=== PATIENT | female | born 1980 | race Two or more races ===

== ENCOUNTER 2017-05-08 11:09 | Emergency (ER) | payer MEDICAID ==
[~2017-05-08] VITALS: Ht 157.5 cm; Wt 66.2 kg
[2017-05-08 11:14] VITALS: BP 114/70
== END 2017-05-08 12:02 | disposition home or self-care (01) ==
LOC: ER 11:12
DX: J11.1 Influenza due to unidentified influenza virus with other respiratory manifestations (principal)
CPT/HCPCS: A4606; Z7610

== ENCOUNTER 2018-04-21 10:18 | Emergency (ER) | END 2018-04-21 11:01 | disposition home or self-care (01) | DX: J20.9 Acute bronchitis, unspecified (principal) ==

== ENCOUNTER 2019-07-29 16:55 | Emergency (ER) | payer MEDICAID ==
[~2019-07-29] VITALS: Ht 157.5 cm; Wt 64.4 kg
[2019-07-29 17:00] VITALS: BP 133/66
== END 2019-07-29 20:27 | disposition home or self-care (01) ==
LOC: ER 16:56
DX: B34.9 Viral infection, unspecified (principal)
CPT/HCPCS: 71045-TC

== ENCOUNTER 2019-09-18 21:36 | Emergency (ER) | payer MEDICAID ==
[~2019-09-18] VITALS: Ht 157.5 cm; Wt 63.5 kg
--- NOTE | 2019-09-18 21:50 | NUR ---
BIBSELF C/O R UPPER EXT PAIN S/P MECHANICAL FALL X2 DAYS AGO. -KO,-HEAD INJ TO ER BED 3, AWAITING EVAL
[2019-09-18] MEDS ORDERED: TRAMADOL HCL 50 MG TABLET ONE (22:28)
[2019-09-18] MEDS ORDERED: TRAMADOL HCL 50 MG TABLET PO ONE (22:30)
[2019-09-18 23:20] VITALS: BP 127/83
--- NOTE | 2019-09-18 23:20 | NUR ---
Patient discharged to home in stable condition. Written and verbal after care instructions given. Patient verbalizes understanding of instruction.
== END 2019-09-18 23:20 | disposition home or self-care (01) ==
LOC: ER 21:36
DX: M79.621 Pain in right upper arm (principal); M25.511 Pain in right shoulder; W01.0XXA Fall on same level from slipping, tripping and stumbling without subsequent striking against object, initial encounter; Y93.01 Activity, walking, marching and hiking; Y92.89 Other specified places as the place of occurrence of the external cause; Y99.8 Other external cause status
CPT/HCPCS: 73030-TC; 73060-TC

== ENCOUNTER 2020-07-10 19:17 | Emergency (ER) | payer MEDICAID ==
[~2020-07-10] VITALS: Ht 157.5 cm; Wt 67.6 kg
--- NOTE | 2020-07-10 19:30 | NUR ---
PT BIBSELF C/O HEADACHE AND DIZZINESS [id number]. PT AAOX4 BREATHING EVENLY AND UNLABORED. PT STATES "I WENT TO THE EYE DR AND WAS TOLD THAT ONE PUPIL IS BIGGER THAN THE OTHER". UPON ASSESSMENT, PT RT PUPIL IS BLOWN AND UNREACTIVE TO LIGHT. LEFT PUPIL IS REACTIVE TO LIGHT. MD AT BEDSIDE FOR EVAL. BLOOD OBTAINED AND SENT TO LAB. 18G LEFT AC INITIATED. PT SKIN IS WARM, DRY, AND INTACT. PT ATTACHED TO MONITOR AND POX. BLANKET GIVEN AND CALL LIGHT WITHIN REACH. WILL CONTINUE TO MONITOR.
[2020-07-10 19:54] LABS: BASOPHILS % (AUTO) 0.4 % (0.0-2.0); EOSINOPHILS % (AUTO) 4.1 % (0.0-6.0); HEMATOCRIT 40 % (33-45); HEMOGLOBIN 13.5 g/dL (11.5-14.8); LYMPHOCYTES # (AUTO) 2.7 /CMM (0.8-4.8); LYMPHOCYTES % (AUTO) 30.5 % (20.0-44.0); MEAN CORPUSCULAR HGB CONC 34 g/dl (31.0-36.0); MEAN CORPUSCULAR VOLUME 93 fL (82-100); MONOCYTES # (AUTO) 0.7 /CMM (0.1-1.30); MONOCYTES % (AUTO) 7.6 % (2.0-12.0); NEUTROPHILS % (AUTO) 57.4 % (43.0-81.0); PLATELET COUNT (AUTO) 254 /CMM (150-450); RED BLOOD CELL COUNT(AUTO) 4.28 MIL/uL (4.0-5.2); WHITE BLOOD COUNT (AUTO) 8.7 K/uL (4.3-11.0)
[2020-07-10 20:08] LABS: ALBUMIN 3.7 g/dL (3.4-5.0); BILIRUBIN,TOTAL 0.4 mg/dL (0.2-1.0); CALCIUM, SERUM 9.2 mg/dL (8.5-10.1); CREATININE 0.9 mg/dL (0.6-1.3); POTASSIUM 3.8 mmol/L (3.5-5.1); TOTAL PROTEIN, SERUM 7.4 g/dL (6.4-8.2)
--- NOTE | 2020-07-10 20:18 | NUR ---
RADIOLOGY AT BEDSIDE
[2020-07-10] MEDS ORDERED: CT SWABBABLE VALVE TRANS SET 1 EA INFUS.SET MC ONE (20:19)
[2020-07-10] MEDS ORDERED: IV NS 0.9% 250 ML IV ONE (20:20)
[2020-07-10] MEDS ORDERED: IOHEXOL-350 100 ML VIAL IV ONE (20:20)
[2020-07-10 20:25] LABS: BILIRUBIN,DIRECT 0.1 mg/dL (0.0-0.2)
[2020-07-10] MEDS ORDERED: METOCLOPRAMIDE HCL 10 MG/2 ML VIAL IV ONE (20:30)
[2020-07-10] MEDS ORDERED: diphenhydrAMINE HCL 50 MG/ML VIAL IV ONE (20:30)
--- NOTE | 2020-07-10 20:35 | NUR ---
RETURNED FROM RADIOLOGY
[2020-07-10] MEDS ORDERED: METOCLOPRAMIDE HCL 10 MG/2 ML VIAL ONE (20:36)
[2020-07-10] MEDS ORDERED: diphenhydrAMINE HCL 50 MG/ML VIAL ONE (20:36)
--- NOTE | 2020-07-10 21:13 | NUR ---
Patient discharged to home in stable condition. Written and verbal after care instructions given. Patient verbalizes understanding of instruction. IV removed. Catheter intact and site benign. Pressure and 4x4 applied to site. No bleeding noted. Pt ambulatory with a steady gait
[2020-07-10 21:20] VITALS: BP 116/70
== END 2020-07-10 21:13 | disposition home or self-care (01) ==
LOC: ER 19:17
DX: R51.9 Headache, unspecified (principal); H57.02 Anisocoria
CPT/HCPCS: 36415; 70450; 70496; 70498; 80048; 80076; 85025; 96374; 96375; 99285; J1200; J2765; J7050; Q9967

== ENCOUNTER 2021-01-22 08:46 | Inpatient (IN) | payer MEDICAID ==
[~2021-01-22] VITALS: Ht 157.5 cm; Wt 68.6 kg
--- NOTE | 2021-01-22 08:59 | NUR ---
PT TO ER BED 06 C/O ON AND OFF COUGH X 1 WEEK. LAST NIGHT PT STATES HER SOB IS WORST WITH SOME CHEST DISCOMFORT SO DECIDED TO COME TO ED TODAY. DENIES CHEST PAIN. HURTS TO COUGH. AFEBRILE W/ STABLE VITALS. PATIENT HAS COVID VACCINE. AWAITING MD SANCHES.
--- NOTE | 2021-01-22 09:14 | NUR ---
DR FLORES AT BEDSIDE FOR EVAL.
[2021-01-22] MEDS ORDERED: methylPREDNISolone SOD SUCC 125 MG/2ML VIAL IV ONE (09:30)
[2021-01-22] MEDS ORDERED: ALBUTEROL FS 2.5 MG/3 ML VIAL.NEB CONTNEB ONE (09:30)
[2021-01-22] MEDS ORDERED: IPRATROPIUM NEB FS 0.5 MG/2.5 ML AMPUL.NEB NEB ONE (09:30)
[2021-01-22] MEDS ORDERED: methylPREDNISolone SOD SUCC 125 MG/2ML VIAL ONE (09:31)
--- NOTE | 2021-01-22 09:35 | NUR ---
IV LINE STARTED BLOOD DRAWN AND SENT TO LAB.
[2021-01-22] MEDS ORDERED: ALBUTEROL FS 2.5 MG/3 ML VIAL.NEB ONE (09:47)
[2021-01-22 09:53] LABS: BASOPHILS % (AUTO) 0.5 % (0.0-2.0); EOSINOPHILS % (AUTO) 8.2 % (0.0-6.0); HEMATOCRIT 38 % (33-45); HEMOGLOBIN 12.7 g/dL (11.5-14.8); LYMPHOCYTES # (AUTO) 2.6 K/uL (0.8-4.8); LYMPHOCYTES % (AUTO) 40.2 % (20.0-44.0); MEAN CORPUSCULAR HGB CONC 34 g/dl (31.0-36.0); MEAN CORPUSCULAR VOLUME 93 fL (82-100); MONOCYTES # (AUTO) 0.5 K/uL (0.1-1.30); MONOCYTES % (AUTO) 7.3 % (2.0-12.0); NEUTROPHILS # (AUTO) 2.8 K/uL (1.8-8.9); NEUTROPHILS % (AUTO) 43.8 % (43.0-81.0); PLATELET COUNT (AUTO) 253 K/uL (150-450); RED BLOOD CELL COUNT(AUTO) 4.08 MIL/uL (4.0-5.2); WHITE BLOOD COUNT (AUTO) 6.4 K/uL (4.3-11.0)
--- NOTE | 2021-01-22 09:55 | NUR ---
RT AT BEDSIDE FOR BREATHING TREATMENT.
[2021-01-22 10:03] LABS: CALCIUM, SERUM 8.8 mg/dL (8.5-10.1); CARBON DIOXIDE 28 mmol/L (21-32); CHLORIDE 107 mmol/L (98-107); CREATININE 0.8 mg/dL (0.6-1.3); GLUCOSE 83 mg/dL (74-106); POTASSIUM 3.7 mmol/L (3.5-5.1); SODIUM SERUM 141 mmol/L (136-145); UREA NITROGEN, BLOOD 9 mg/dL (7-18)
--- NOTE | 2021-01-22 11:13 | NUR ---
PAGED EPIC SHEET METAL OPERATOR
--- NOTE | 2021-01-22 11:18 | NUR ---
SUBMITTED MOVE SHEET AND CALLED NURSING SUP
--- NOTE | 2021-01-22 11:23 | NUR ---
ROOM 119-1
--- NOTE | 2021-01-22 11:43 | NUR ---
PAGED EPIC ENTRY LEVEL SOFTWARE ENGINEER AGAIN
--- NOTE | 2021-01-22 13:25 | NUR ---
BED ASSIGNMENT 320. ADMITTING DEPT NOTIFIED.
--- NOTE | 2021-01-22 14:15 | NUR ---
REPORT GIVEN TO NURSE SERINA NOVA. AWAITING TRANSFER TO FLOOR.
--- NOTE | 2021-01-22 14:25 | NUR ---
tele reformatory attendant: notes dr. townsend here and made aware that the admission is on the way up and says i already saw her, put her on cardiac diet. order read back and carried out.
[2021-01-22 14:35] VITALS: BP 124/61
--- NOTE | 2021-01-22 14:35 | NUR ---
tele web site specialist: admission admitted this 40 year old female pt from [facility] with dx: r/o acute coronary syndrome, chf. a/ox 4. ambulatory. oriented to room and surroundings. no coughing/congestion noted. vss, afebrile. instructed to call for assistance. will continue to monitor.
[2021-01-22] MEDS ORDERED: ACETAMINOPHEN 325 MG TABLET PO PRN ×2 (15:30→19:00)
[2021-01-22 16:00] VITALS: BP 124/68
--- NOTE | 2021-01-22 16:28 | NUR ---
tele publishing agent: notes offered influenza vaccine, but pt refused, stated, "no, no."
--- NOTE | 2021-01-22 17:00 | NUR ---
tele travel occupational therapist: notes dinner served. hob elevated. instructed to call for assistance. will continue to monitor.
[2021-01-22] MEDS ORDERED: ENOXAPARIN SODIUM 40 MG/0.4 ML DISP.SYRIN SQ SCH (19:00)
[2021-01-22] MEDS ORDERED: ONDANSETRON HCL/PF 4 MG/2 ML VIAL IVP PRN (19:00)
[2021-01-22] MEDS ORDERED: IPRATROPIUM NEB FS 0.5 MG/2.5 ML AMPUL.NEB NEB PRN (19:00)
--- NOTE | 2021-01-22 19:14 | NUR ---
tele strategic sourcing manager: notes report given to christian (esthela) for continuity of care. at bedside.
--- NOTE | 2021-01-22 19:45 | NUR ---
JOB FORWARDER OPENING NOTE PT A/OX4; ABLE TO MAKE NEEDS KNOWN. TOLERATING R/A WELL WITH NO SOB. EXTERNAL CARDIAC TELE MONITOR READS SR 87. DENIES PAIN OR DISCOMFORT AT THIS TIME. RAC #20G S/L; PATENT AND INTACT. SAFETY MEASURES IN PLACE: BED IN LOWEST LOCKED POSITION, SIDE RAILS UP X2, CALL LIGHT WITHIN EASY REACH. PT IN STABLE CONDITION, WILL CONT. PLAN OF CARE.
[2021-01-22 20:00] VITALS: BP 125/74
[2021-01-22] MEDS: PANTOPRAZOLE 40 MG TABLET.DR PO SCH (20:02)
[2021-01-22] MEDS ORDERED: HYDROCODONE/APAP 5/325MG TABLET PO PRN (21:00)
--- NOTE | 2021-01-22 22:05 | NUR ---
VEST FRONT PRESSER NOTE - H/A PT C/O 10/31 H/A. ADMINISTERED NORCO PER PTS REQUEST AND S ORDERED. WILL REASSESS FOR PAIN IN 30 MINUTES.
[2021-01-23] VITALS: BP_SYST 107; BP_DIAS 65; BP_DIAS 75
[2021-01-23 04:00] VITALS: BP 102/59
--- NOTE | 2021-01-23 06:06 | NUR ---
SENIOR PATIENT ACCOUNT REPRESENTATIVE CLOSING NOTE PT A/OX4; ABLE TO MAKE NEEDS KNOWN. TOLERATING R/A WELL WITH NO SOB. EXTERNAL CARDIAC TELE MONITOR READS SB 54. DENIES PAIN OR DISCOMFORT AT THIS TIME. RAC #20G S/L; PATENT AND INTACT. SAFETY MEASURES IN PLACE: BED IN LOWEST LOCKED POSITION, SIDE RAILS UP X2, CALL LIGHT WITHIN EASY REACH. PT IN STABLE CONDITION, WILL ENDORSE PLAN OF CARE TO ONCOMING MORNING RN.
[2021-01-23 07:01] LABS: HEMATOCRIT 38 % (33-45); HEMOGLOBIN 12.4 g/dL (11.5-14.8); LYMPHOCYTES # (AUTO) 1.7 K/uL (0.8-4.8); LYMPHOCYTES % (AUTO) 14.6 % (20.0-44.0); MEAN CORPUSCULAR HGB CONC 33 g/dl (31.0-36.0); MEAN CORPUSCULAR VOLUME 94 fL (82-100); MONOCYTES # (AUTO) 0.8 K/uL (0.1-1.30); MONOCYTES % (AUTO) 6.5 % (2.0-12.0); NEUTROPHILS # (AUTO) 9.3 K/uL (1.8-8.9); NEUTROPHILS % (AUTO) 78.9 % (43.0-81.0); PLATELET COUNT (AUTO) 254 K/uL (150-450); RED BLOOD CELL COUNT(AUTO) 3.98 MIL/uL (4.0-5.2); WHITE BLOOD COUNT (AUTO) 11.8 K/uL (4.3-11.0)
[2021-01-23 07:35] LABS: CALCIUM, SERUM 8.5 mg/dL (8.5-10.1); CREATININE 0.6 mg/dL (0.6-1.3); MAGNESIUM 2.5 mg/dL (1.8-2.4); PHOSPHORUS 4.3 mg/dL (2.5-4.9); POTASSIUM 3.9 mmol/L (3.5-5.1)
--- NOTE | 2021-01-23 07:42 | NUR ---
TELE/RN OPENING NOTES RECEIVED PATIENT ON BED AWAKE ALERT AND ORIENTED X4. PATIENT IS ON ROOM AIR. PATIENT IN NO APPARENT RESPIRATORY DISTRESS NOTED. NO COMPLAINED OF PAIN NOTED AT THIS TIME. TELE MONITOR READING SINUS RHYTHM 75 BPM. WILL CONTINUE TO MONITOR.
[2021-01-23] MEDS: PANTOPRAZOLE 40 MG TABLET.DR PO SCH (07:43)
[2021-01-23 08:00] VITALS: BP 107/61
[2021-01-23] MEDS ORDERED: METH4TAB17 PO (10:39)
[2021-01-23] MEDS ORDERED: PANT40TA2 PO (11:35)
[2021-01-23] MEDS ORDERED: ALBU18HF2 INH (11:35)
--- NOTE | 2021-01-23 12:56 | NUR ---
RN NOTES PATIENT IS ALERT AND ORIENTEDX4. PATIENT IS ON ROOM AIR. PATIENT IN NO APPARENT RESPIRATORY DISTRESS NOTED. NO COMPLAINED OF PAIN NOTED. SEEN AND EXAMINED BY MD WITH ORDERS MADE AND CARRIED OUT. ALL DUE MEDICATIONS WAS GIVEN. DISCHARGED INSTRUCTIONS WAS GIVEN AND PATIENT VERBALIZED UNDERSTANDING. PATIENT LEFT THE HOSPITAL IN MEDICALLY STABLE CONDITION, E M ASSEMBLER BY AREN IRENE VIA AMBULANCE.
== END 2021-01-23 12:36 | disposition home or self-care (01) | DRG 141 ==
LOC: ER 08:48 → TELE1 11:32 → UNDOADMIN 11:32 → TELE 13:52 → MED 01-23 09:03
PROVIDERS: ADMIT Nurse Practitioner Acute Care; ATTEND Nurse Practitioner Acute Care
DX: J45.909 Unspecified asthma, uncomplicated (principal); K21.9 Gastro-esophageal reflux disease without esophagitis; Z20.822 Contact with and (suspected) exposure to COVID-19
CPT/HCPCS: 36415; 71045-TC; 80048-TC; 80061-TC; 83735-TC; 83880; 84100-TC; 84484-TC; 84703-TC; 85025-TC; 85378-TC; 87081-TC; 93308-TC; G0378; J1650; J2930; J7030

== ENCOUNTER 2021-07-20 13:14 | Emergency (ER) | payer MEDICAID ==
[~2021-07-20] VITALS: Ht 157.5 cm; Wt 68.0 kg
[~2021-07-20 13:14] MED LIST: ALBU18HF2 INH; METH4TAB17 PO; PANT40TA2 PO
--- NOTE | 2021-07-20 13:45 | NUR ---
TO ER BED 2, C/O CHEST PAIN R/T UPPER BACK SINCE LAST NIGHT. FEELING DIZZY SINCE THIS AM, WAS SEEN HERE FEW MONTHS AGO FOR THE SAME REASON, AAOX3, BREATHING EVEN AND NON LABORED, CONNECTED TO MONITOR
--- NOTE | 2021-07-20 14:04 | NUR ---
SALINE ESTABLISHED, BLOOD DRAWN AND SENT TO LAB
--- NOTE | 2021-07-20 14:08 | NUR ---
TIRE BALANCER AT BEDSIDE
[2021-07-20 14:37] LABS: BASOPHILS % (AUTO) 0.1 % (0.0-2.0); EOSINOPHILS % (AUTO) 1.8 % (0.0-6.0); HEMATOCRIT 41 % (33-45); HEMOGLOBIN 13.6 g/dL (11.5-14.8); LYMPHOCYTES # (AUTO) 1.9 K/uL (0.8-4.8); LYMPHOCYTES % (AUTO) 32.9 % (20.0-44.0); MEAN CORPUSCULAR HGB CONC 33 g/dl (31.0-36.0); MEAN CORPUSCULAR VOLUME 92 fL (82-100); MONOCYTES # (AUTO) 0.4 K/uL (0.1-1.30); MONOCYTES % (AUTO) 6.8 % (2.0-12.0); NEUTROPHILS # (AUTO) 3.3 K/uL (1.8-8.9); NEUTROPHILS % (AUTO) 58.4 % (43.0-81.0); PLATELET COUNT (AUTO) 244 K/uL (150-450); RED BLOOD CELL COUNT(AUTO) 4.43 MIL/uL (4.0-5.2); WHITE BLOOD COUNT (AUTO) 5.7 K/uL (4.3-11.0)
[2021-07-20 14:58] LABS: ALBUMIN 3.6 g/dL (3.4-5.0); BILIRUBIN,DIRECT 0.1 mg/dL (0.0-0.2); BILIRUBIN,TOTAL 0.7 mg/dL (0.2-1.0); TOTAL PROTEIN, SERUM 7.1 g/dL (6.4-8.2)
--- NOTE | 2021-07-20 15:05 | NUR ---
COVID SWAB DONE AND SENT TO LAB
--- NOTE | 2021-07-20 15:21 | NUR ---
DR SALAZAR CANCELLED TEST, PER PT THERE'S NO CHANCE OF
[2021-07-20 15:40] LABS: CALCIUM, SERUM 8.5 mg/dL (8.5-10.1); CARBON DIOXIDE 26 mmol/L (21-32); CHLORIDE 104 mmol/L (98-107); CREATININE 0.7 mg/dL (0.6-1.3); GLUCOSE 90 mg/dL (74-106); POTASSIUM 3.3 mmol/L (3.5-5.1); SODIUM SERUM 137 mmol/L (136-145); UREA NITROGEN, BLOOD 8 mg/dL (7-18)
[2021-07-20] MEDS ORDERED: ALBUTEROL FS 2.5 MG/3 ML VIAL.NEB NEB ONE (17:00)
[2021-07-20] MEDS ORDERED: POTASSIUM CHLORIDE 20 MEQ TAB.PRT.SR PO ONE ×2 (17:00→17:43)
[2021-07-20] MEDS ORDERED: DEXAMETHASONE SOD PHOSPHATE 4 MG/ML VIAL IV ONE (17:00)
[2021-07-20] MEDS ORDERED: IPRATROPIUM NEB FS 0.5 MG/2.5 ML AMPUL.NEB NEB ONE (17:00)
--- NOTE | 2021-07-20 17:21 | NUR ---
CALLED RESPIRATORY FOR BREATHING TREATMENT
[2021-07-20] MEDS ORDERED: ALBUTEROL FS 2.5 MG/3 ML VIAL.NEB ONE (17:28)
[2021-07-20] MEDS ORDERED: IPRATROPIUM NEB FS 0.5 MG/2.5 ML AMPUL.NEB ONE (17:28)
[2021-07-20] MEDS ORDERED: DEXAMETHASONE SOD PHOSPHATE 4 MG/ML VIAL ONE (17:42)
[2021-07-20] MEDS ORDERED: PRED50TA PO (18:34)
[2021-07-20 19:05] VITALS: BP 134/72
--- NOTE | 2021-07-20 19:05 | NUR ---
IV removed. Catheter intact and site benign. Pressure and 4x4 applied to site. No bleeding noted.Patient discharged to home in stable condition. Written and verbal after care instructions given. Patient verbalizes understanding of instruction.
== END 2021-07-20 19:06 | disposition home or self-care (01) ==
LOC: ER 13:16
DX: J45.901 Unspecified asthma with (acute) exacerbation (principal); Z20.822 Contact with and (suspected) exposure to COVID-19; E87.6 Hypokalemia
CPT/HCPCS: 36415; 71045; 80048; 80076; 84484; 84703; 85025; 85378; 87426; 93005; 94640; 94799; 96374; 99285; C9803; J1100

== ENCOUNTER 2021-08-05 12:29 | Emergency (ER) | payer MEDICAID ==
[~2021-08-05] VITALS: Ht 157.5 cm; Wt 68.0 kg
[~2021-08-05 12:29] MED LIST changes: +PRED50TA PO
[2021-08-05] MEDS ORDERED: predniSONE 20 MG TABLET PO ONE (14:00)
[2021-08-05] MEDS ORDERED: ALBUTEROL FS 2.5 MG/3 ML VIAL.NEB CONTNEB ONE (14:00)
[2021-08-05] MEDS ORDERED: IPRATROPIUM NEB FS 0.5 MG/2.5 ML AMPUL.NEB NEB ONE (14:00)
--- NOTE | 2021-08-05 14:00 | NUR ---
pt came in c/o sob which started this morning ,pt is a/o x4 connected to monitor.
[2021-08-05] MEDS ORDERED: predniSONE 20 MG TABLET ONE (14:03)
--- NOTE | 2021-08-05 14:10 | NUR ---
covid swab sent to lab
[2021-08-05] MEDS ORDERED: IPRATROPIUM NEB FS 0.5 MG/2.5 ML AMPUL.NEB ONE (14:20)
[2021-08-05] MEDS ORDERED: ALBUTEROL FS 2.5 MG/3 ML VIAL.NEB ONE (14:20)
[2021-08-05 15:20] VITALS: BP 119/78
[2021-08-05] MEDS ORDERED: PRED20TA PO (15:22)
[2021-08-05] MEDS ORDERED: AZIT250T13 PO (15:22)
== END 2021-08-05 15:32 | disposition home or self-care (01) ==
LOC: ER 12:31
DX: J20.9 Acute bronchitis, unspecified (principal); J45.998 Other asthma; Z20.822 Contact with and (suspected) exposure to COVID-19
CPT/HCPCS: 71045; 93005; 94644; 99285; C9803; J7512; U0003

== ENCOUNTER 2022-08-17 10:58 | Emergency (ER) | payer MEDICAID ==
[~2022-08-17] VITALS: Ht 157.5 cm; Wt 68.0 kg
[~2022-08-17 10:58] MED LIST changes: +AZIT250T13 PO; +PRED20TA PO
--- NOTE | 2022-08-17 11:10 | NUR ---
BIBS C/O SOB,DRY COUGH, SORE THROAT X 3 DAYS, INHALER NOT HELPING. AMBULATORY, PLACED IN BED, AAOX4, UNLABORED BREATHING SATURATING AT 91%RA.
--- NOTE | 2022-08-17 11:20 | NUR ---
RESP. TECH AT BEDSIDE FOR BREATHING TREATMENT.
[2022-08-17] MEDS ORDERED: IPRATROPIUM NEB FS 0.5 MG/2.5 ML AMPUL.NEB ONE (11:30)
[2022-08-17] MEDS ORDERED: IPRATROPIUM NEB FS 0.5 MG/2.5 ML AMPUL.NEB NEB ONE (11:30)
[2022-08-17] MEDS ORDERED: ALBUTEROL FS 2.5 MG/3 ML VIAL.NEB ONE (11:30)
[2022-08-17] MEDS ORDERED: ALBUTEROL FS 2.5 MG/3 ML VIAL.NEB CONTNEB ONE (11:30)
[2022-08-17] MEDS ORDERED: predniSONE 20 MG TABLET PO ONE (11:30)
[2022-08-17] MEDS ORDERED: predniSONE 20 MG TABLET ONE (11:31)
[2022-08-17] MEDS ORDERED: PRED20TA PO (12:18)
--- NOTE | 2022-08-17 12:30 | NUR ---
Patient discharged to home in stable condition. Written and verbal after care instructions given. Patient verbalizes understanding of instruction.
[2022-08-17 12:32] VITALS: BP 120/85
== END 2022-08-17 12:30 | disposition home or self-care (01) ==
LOC: ER 11:08
DX: J45.901 Unspecified asthma with (acute) exacerbation (principal); J06.9 Acute upper respiratory infection, unspecified; R05.9 Cough, unspecified; R09.81 Nasal congestion; Z79.899 Other long term (current) drug therapy
CPT/HCPCS: 99285; 94644; J7512